=== PATIENT | male | born 1970 | race Hispanic/Latino ===

== ENCOUNTER → 2024-10-18 08:40 | Outpatient (REF) | payer OTHER, SELFPAY | LOC: MRI 3T 08:40 | PROVIDERS: ATTENDING PHYSICIAN Urology; FAMILY PHYSICIAN Physician Assistant Medical | DX: R36.1 Hematospermia (principal) | CPT/HCPCS: 72197; A9575 ==

== ENCOUNTER 2025-06-27 06:20 | Day surgery (SDC) | payer OTHER, SELFPAY | END 2025-06-27 11:53 | disposition home or self-care (01) | LOC: GI 06:20 | PROVIDERS: ATTENDING PHYSICIAN Internal Medicine Gastroenterology | DX: Z12.11 Encounter for screening for malignant neoplasm of colon (principal); K64.9 Unspecified hemorrhoids; D12.2 Benign neoplasm of ascending colon; D12.3 Benign neoplasm of transverse colon; Z80.0 Family history of malignant neoplasm of digestive organs | CPT/HCPCS: 45385; 45381; 88305 ==